=== PATIENT | male | born 1965 | race Caucasian/White ===

== ENCOUNTER 2020-09-02 08:30 | Inpatient (IN) | payer OTHER ==
[~2020-09-02] VITALS: Ht 177.8 cm; Wt 88.3 kg
--- NOTE | 2020-09-02 09:07 | NUR ---
Pt with LLE pain and swelling since 08/29. Pt denies injury. CMS intact. Erythema noted to L LE around lower sweeney and calf. Pt provided with warm blanket for comfort, denies other needs.
[2020-09-02] MEDS ORDERED: SODIUM CHLORIDE FLUSH 10ML SYR IVF ONE (10:00)
[2020-09-02 10:12] LABS: BASOPHILS % (AUTO) 0 % (0-1); EOSINOPHILS % (AUTO) 1 % (1-7); LYMPHOCYTES % (AUTO) 16 % (22-44); MEAN CORPUSCULAR HEMOGLOBIN 31.6 pg (27.5-34.5); MEAN CORPUSCULAR HGB CONC 34.5 g/dL (33.2-36.2); MEAN PLATELET VOLUME 8.2 fL (7.4-10.4); MONOCYTES % (AUTO) 17 % (2-9); NEUTROPHILS % (AUTO) 67 % (42-75); PLATELET COUNT 278 x10^3/uL (130-400)
[2020-09-02 10:14] LABS: MD NO
--- NOTE | 2020-09-02 10:16 | NUR ---
PIV inserted per order. POC discussed with pt. Pt resting in bed watching TV, denies other needs.
--- NOTE | 2020-09-02 10:27 | NUR ---
Dr. Cantu at bedside to evaluate pt and discuss POC.
[2020-09-02] MEDS ORDERED: HEPARIN 5,000 UNITS/ML, 1ML IV ONE (10:30)
[2020-09-02] MEDS ORDERED: HEPARIN 25,000 UNITS/250ML PMX 250 ML ONE (10:43)
[2020-09-02] MEDS ORDERED: HEPARIN 5,000 UNITS/ML, 1ML ONE ×2 (10:43→17:42)
[2020-09-02] MEDS: HEPARIN 25,000 UNITS/250ML PMX 250 ML IV PRN ×2 (10:50→18:11)
--- NOTE | 2020-09-02 11:03 | NUR ---
Pt resting in bed watching TV, NADN. Heparin gtt initiated per order.
--- NOTE | 2020-09-02 11:46 | NUR ---
Pt resting in bed, NADN, denies needs. Awaiting CTA.
[2020-09-02 11:49] LABS: ALBUMIN 2.9 g/dL (3.4-5.0); ANION GAP 9 mmol/L (5-15); CALCIUM 8.8 mg/dL (8.5-10.1); CHLORIDE 104 mmol/L (98-107)
[2020-09-02 11:53] LABS: ALANINE AMINOTRANSFERASE 22 U/L (12-78); ALKALINE PHOSPHATASE 119 U/L (45-117); BILIRUBIN,TOTAL 0.5 mg/dL (0.2-1.0); CREATININE 1.14 mg/dL (0.7-1.3)
--- NOTE | 2020-09-02 12:09 | NUR ---
Pt to CT via [facility].
--- NOTE | 2020-09-02 12:26 | NUR ---
Pt back from CT, resting in bed, denies needs.
--- NOTE | 2020-09-02 13:08 | NUR ---
LATE ENTRY: REPORT FROM FLAVIO, RN. PT RESTING IN BED, CONVERSING WITH THIS RN. ESTES. PT PROVIDED WITH URINAL, ALL NEEDS MET AT THIS TIME. BED RAILS UP X2, CALL LIGHT IN REACH.
[2020-09-02] MEDS ORDERED: OMNIPAQUE 350 MG/ML, 75ML BOTTLE ONE (13:27)
[2020-09-02] MEDS ORDERED: LABETALOL 5MG/ML, 20ML IVPush PRN (14:30)
[2020-09-02] MEDS ORDERED: BISACODYL 10 MG SUPP PR PRN (14:30)
[2020-09-02] MEDS ORDERED: hydrALAzine 20 MG/ML, 1ML IVPush PRN (14:30)
[2020-09-02] MEDS ORDERED: ACETAMINOPHEN 325 MG TABLET PO PRN (14:30)
[2020-09-02] MEDS ORDERED: POLYETHYLENE GLYCOL 17 GM PACKET PO PRN (14:30)
[2020-09-02] MEDS ORDERED: morphine SULFATE 10 MG/ML, 1ML IVPush PRN (14:30)
[2020-09-02] MEDS ORDERED: ONDANSETRON 2MG/ML, 2ML IVPush PRN (14:30)
[2020-09-02] MEDS ORDERED: NICOTINE 21 MG/24 HR PATCH.TD24 TD ONE (15:00)
[2020-09-02] MEDS ORDERED: NICOTINE 21 MG/24 HR PATCH.TD24 ONE (15:19)
--- NOTE | 2020-09-02 15:40 | NUR ---
PT PLACED ON HOSPITAL BED. ABLE TO MOVE SELF FOLLOWING INSTRUCTIONS TO MOVE TO THE RIGHT AND GENTLY FOLLOW WITH HIS LEFT LEG. PT PROVIDED WITH MEAL TRAY. ALL NEEDS MET.
[2020-09-02] MEDS: HEPARIN 5,000 UNITS/ML, 1ML IV PRN (18:10)
[2020-09-02 21:00] VITALS: BP 126/87
[2020-09-02] MEDS ORDERED: MELATONIN 5 MG TABLET PO PRN (21:00)
[2020-09-03 00:10] VITALS: BP 125/90
[2020-09-03 00:20] VITALS: BP 125/90
[2020-09-03] MEDS ORDERED: LORazepam 2 MG/ML, 1ML IVPush PRN (00:30)
[2020-09-03] MEDS: HEPARIN 5,000 UNITS/ML, 1ML IV PRN (01:56)
[2020-09-03 03:32] LABS: AMPHETAMINE SCREEN, URINE Positive (Negative); BARBITURATE SCREEN, URINE Negative (Negative); BENZODIAZEPINE SCREEN, URINE Negative (Negative); CANNABINOID SCREEN, URINE Negative (Negative); COCAINE SCREEN, URINE Negative (Negative); METHADONE SCREEN, URINE Negative (Negative); OPIATE SCREEN, URINE Negative (Negative)
[2020-09-03 06:24] LABS: BASOPHILS % (AUTO) 0 % (0-1); EOSINOPHILS % (AUTO) 1 % (1-7); LYMPHOCYTES % (AUTO) 29 % (22-44); MEAN CORPUSCULAR HEMOGLOBIN 31.5 pg (27.5-34.5); MEAN PLATELET VOLUME 8.3 fL (7.4-10.4); MONOCYTES % (AUTO) 17 % (2-9); NEUTROPHILS % (AUTO) 53 % (42-75); PLATELET COUNT 300 x10^3/uL (130-400); RED BLOOD COUNT 4.46 x10^6/uL (4.38-5.82); RED CELL DISTRIBUTION WIDTH 13.2 % (9.4-14.8)
[2020-09-03 06:28] LABS: ANION GAP 6 mmol/L (5-15); CALCIUM 8.9 mg/dL (8.5-10.1); CHLORIDE 106 mmol/L (98-107)
[2020-09-03 06:29] LABS: MD NO
[2020-09-03 06:39] LABS: CREATININE 1.08 mg/dL (0.7-1.3)
[2020-09-03] MEDS: HEPARIN 25,000 UNITS/250ML PMX 250 ML IV PRN (06:40)
[2020-09-03 07:13] VITALS: BP 126/81
[2020-09-03] MEDS: SENNA/DOCUSATE TABLET PO SCH (09:00)
[2020-09-03] MEDS: CHLORDIAZEPOXIDE 5 MG CAPSULE PO PRN (09:08)
[2020-09-03] MEDS: HYDROcodone/APAP 5/325 TABLET PO PRN ×2 (09:20→18:37)
[2020-09-03] MEDS: APIXABAN 5 MG TABLET PO SCH ×2 (11:35→20:29)
[2020-09-03 12:14] VITALS: BP 115/78
[2020-09-03 19:51] VITALS: BP 128/82
[2020-09-04 00:47] VITALS: BP 113/74
[2020-09-04 05:32] LABS: CHLORIDE 103 mmol/L (98-107)
[2020-09-04 05:39] LABS: ANION GAP 4 mmol/L (5-15); CALCIUM 9.1 mg/dL (8.5-10.1); CREATININE 1.28 mg/dL (0.7-1.3)
[2020-09-04 05:42] LABS: BASOPHILS % (AUTO) 1 % (0-1); EOSINOPHILS % (AUTO) 2 % (1-7); LYMPHOCYTES % (AUTO) 19 % (22-44); MEAN CORPUSCULAR HEMOGLOBIN 31.6 pg (27.5-34.5); MEAN CORPUSCULAR HGB CONC 33.8 g/dL (33.2-36.2); MEAN PLATELET VOLUME 8.1 fL (7.4-10.4); MONOCYTES % (AUTO) 9 % (2-9); NEUTROPHILS % (AUTO) 70 % (42-75); PLATELET COUNT 314 x10^3/uL (130-400); RED BLOOD COUNT 4.55 x10^6/uL (4.38-5.82); RED CELL DISTRIBUTION WIDTH 13.1 % (9.4-14.8)
[2020-09-04 05:49] LABS: MD NO
[2020-09-04 06:46] VITALS: BP 125/80
[2020-09-04] MEDS: SENNA/DOCUSATE TABLET PO SCH (08:35)
[2020-09-04] MEDS: APIXABAN 5 MG TABLET PO SCH (08:35)
[2020-09-04] MEDS: CHLORDIAZEPOXIDE 5 MG CAPSULE PO PRN (08:38)
[2020-09-04] MEDS ORDERED: APIX5TAB PO (12:51)
[2020-09-04 14:34] VITALS: BP 152/93
== END 2020-09-04 16:21 | disposition home or self-care (01) | DRG 175 ==
LOC: ED 09:58 → EDIP 13:53 → 5SO 09-03 00:01 → DCLOUNGE 09-04 16:08
PROVIDERS: ADMIT Hospitalist; ATTEND Hospitalist
DX: I26.99 Other pulmonary embolism without acute cor pulmonale (principal); J96.01 Acute respiratory failure with hypoxia; I82.409 Acute embolism and thrombosis of unspecified deep veins of unspecified lower extremity; D68.69 Other thrombophilia; F10.10 Alcohol abuse, uncomplicated; F17.200 Nicotine dependence, unspecified, uncomplicated; F15.10 Other stimulant abuse, uncomplicated; Z59.0 Homelessness; Z88.0 Allergy status to penicillin
CPT/HCPCS: 36415; 71275; 80048; 80053; 80307; 84443; 85025; 85379; 85520; 93005; 93306; 96374; 99291; G0378; J1644; Q9967

== ENCOUNTER 2020-10-10 07:42 | Emergency (ER) | payer MEDICAID ==
[~2020-10-10] VITALS: Ht 167.6 cm; Wt 87.2 kg
[~2020-10-10 07:42] MED LIST: APIX5TAB PO
[2020-10-10 07:51] VITALS: BP 123/90
[2020-10-10 08:58] LABS: BASOPHILS % (AUTO) 1 % (0-1); EOSINOPHILS % (AUTO) 3 % (1-7); LYMPHOCYTES % (AUTO) 29 % (22-44); MEAN CORPUSCULAR HEMOGLOBIN 31.3 pg (27.5-34.5); MEAN CORPUSCULAR HGB CONC 33.1 g/dL (33.2-36.2); MEAN PLATELET VOLUME 8.2 fL (7.4-10.4); MONOCYTES % (AUTO) 9 % (2-9); NEUTROPHILS % (AUTO) 59 % (42-75); PLATELET COUNT 240 x10^3/uL (130-400); RED BLOOD COUNT 4.74 x10^6/uL (4.38-5.82); RED CELL DISTRIBUTION WIDTH 15.9 % (9.4-14.8)
[2020-10-10 09:00] LABS: MD NO
[2020-10-10 09:02] LABS: ALBUMIN 3.5 g/dL (3.4-5.0); ANION GAP 5 mmol/L (5-15); CALCIUM 9.1 mg/dL (8.5-10.1); CHLORIDE 110 mmol/L (98-107); CREATININE 0.95 mg/dL (0.7-1.3)
== END 2020-10-10 10:49 | disposition home or self-care (01) ==
LOC: ED 08:32
DX: I82.412 Acute embolism and thrombosis of left femoral vein (principal); I82.432 Acute embolism and thrombosis of left popliteal vein; F15.10 Other stimulant abuse, uncomplicated; F17.210 Nicotine dependence, cigarettes, uncomplicated; Z72.9 Problem related to lifestyle, unspecified
CPT/HCPCS: 36415; 80048; 82040; 85025; 93005; 99285; 99406